=== PATIENT | female | born 1990 | race American Indian/Alaskan Native ===

== ENCOUNTER 2017-09-13 16:39 | Emergency (ER) | payer MEDICAID ==
[2017-09-13 16:44] VITALS: BP 134/57
== END 2017-09-13 22:07 | disposition left against medical advice (07) ==
LOC: ED 16:39
DX: M79.671 Pain in right foot (principal); J45.909 Unspecified asthma, uncomplicated; Y92.89 Other specified places as the place of occurrence of the external cause; Z90.89 Acquired absence of other organs; W10.9XXA Fall (on) (from) unspecified stairs and steps, initial encounter; Y93.89 Activity, other specified; Y99.8 Other external cause status; Z53.21 Procedure and treatment not carried out due to patient leaving prior to being seen by health care provider

== ENCOUNTER 2017-10-07 17:29 | Emergency (ER) | payer MEDICAID ==
[2017-10-07 18:25] VITALS: BP 126/69
[2017-10-07 18:49] LABS: Basophils # (Auto) 0.1 K/mm3 (0.0-0.1); Basophils % (Auto) 0.6 % (0.0-1.8); Eosinophils # (Auto) 0.1 K/mm3 (0.0-0.4); Eosinophils % (Auto) 1.2 % (0.0-4.3); Hematocrit 35.4 % (30.3-42.9); Hemoglobin 11.5 gm/dl (10.1-14.3); Lymphocytes # (Auto) 3.1 K/mm3 (1.2-5.4); Mean Corpuscular HGB Conc 32 % (30-34); Mean Corpuscular Hemoglobin 27 pg (28-32); Mean Corpuscular Volume 82 fl (79-97); Monocytes # (Auto) 0.4 K/mm3 (0.0-0.8); Monocytes % (Auto) 4.7 % (0.0-7.3); Platelet Count 327 K/mm3 (140-440); Red Blood Count 4.32 M/mm3 (3.65-5.03); Red Cell Distribution Width 15.8 % (13.2-15.2)
[2017-10-07 19:00] LABS: BUN/Creatinine Ratio 14; Blood Urea Nitrogen 7 mg/dL (7-17); Hemolysis Index 42
== END 2017-10-07 18:25 | disposition left against medical advice (07) ==
LOC: ED 17:29
DX: H60.399 Other infective otitis externa, unspecified ear (principal); Z53.21 Procedure and treatment not carried out due to patient leaving prior to being seen by health care provider
CPT/HCPCS: 36415; 80048; 85025

== ENCOUNTER 2019-06-21 23:55 | Emergency (ER) | payer MEDICAID ==
[2019-06-22 00:05] VITALS: BP 133/60
[2019-06-22] MEDS ORDERED: predniSONE 20 MG TAB PO ONE (01:04)
[2019-06-22] MEDS ORDERED: CETIRIZINE 10 MG TAB PO ONE (01:04)
--- NOTE | 2019-06-22 01:27 | Emergency Department Report ---
Minor Respiratory - HPI Chief Complaint: Adult Asthma Stated Complaint: SOB, ASTHMA Time Seen by Provider: 06/22/19 00:51 Pain Location: Throat Severity: mild Minor Respiratory: Yes Able to Tolerate Fluids, No Rhinorrhea, No Sore Throat, No Ear Pain, No Cough, No Sick Contacts, No Hemoptysis, No Chest Pain, No Shortness of Breath, No Fever Other History: This is a 28-year-old female with a history of asthma who states she has not been on her medication due to change of insurance presents the ED complaining of throat discomfort and feeling a little short of breath for the past 1 week. Patient states that feelings of throat discomfort for the past week.. Patient denies fever/chills/coughing/nausea vomiting abdominal pain or diarrhea or chest pain. Patient states states that she does feel little short of breath when she takes a deep breath in. Patient states she used to use albuterol inhaler but not anymore. Patient states that she does have seasonal allergies which may be flaring up her asthma. Patient denies any sick contacts. ED Review of Systems ROS: Stated complaint: SOB, ASTHMA Other details as noted in HPI Comment: All other systems reviewed and negative ED Past Medical Hx - Past Medical History Previous Medical History?: Yes Hx Asthma: Yes - Surgical History Past Surgical History?: Yes Additional Surgical History: tonsillectomy 1996 - Social History Smoking Status: Former Smoker Substance Use Type: None - Medications Home Medications: Home Medications Medication Instructions Recorded Confirmed Last Taken Type Acyclovir [Zovirax Cap] 200 mg PO 5XD 10 Days cap 12/23/14 Unknown Rx Fluconazole [Diflucan TAB] 150 mg PO ONCE #1 tablet 12/23/14 Unknown Rx Nitrofurantoin Hunt/M-Cryst 100 mg PO Q12HR #14 capsule 12/23/14 Unknown Rx [Macrobid CAP] Albuterol INH(or & Nicu Only) 2 puff IH QID PRN #8.5 gram 06/22/19 Unknown Rx [ProAir HFA Inhaler] Loratadine [Claritin] 10 mg PO DAILY #30 tablet 06/22/19 Unknown Rx Minor Respiratory Exam - Exam General: Vital signs noted. No distress. Alert and acting appropriately. HEENT: Yes Moist Mucous Membranes, No Pharyngeal Erythema, No Pharyngeal Exudates, No Rhinorrhea, No Conjuctival Injection, No Frontal Tenderness, No Maxillary Tenderness Ear: Neither TM Bulge, Neither TM Erythema, Neither EAC Pain, Neither EAC Discharge Neck: Yes Supple, No Adenopathy Lungs: Yes Good Air Exchange, No Wheezes, No Ronchi, No Stridor, No Cough, No Labored Respirations, No Retractions, No Use of Accessory Muscles, No Other Abnormal Lung Sounds Heart: Yes Regular, No Murmur Abdomen: Yes Normal Bowel Sounds, No Tenderness, No Peritoneal Signs Skin: No Rash, No Edema Neurologic: Alert and oriented, no deficits. Musculoskeletal: Unremarkable. ED Course Vital Signs 06/22/19 00:01 Temperature 98.4 F Pulse Rate 105 H Respiratory 18 Rate Blood Pressure 133/60 O2 Sat by Pulse 97 Oximetry ED Medical Decision Making - Medical Decision Making 28-year-old female who presents with complaints of throat itching and mild shortness of breath. Patient did note that she is not currently on her albuterol inhaler and is out. Patient does note that the symptoms have been going on for about a week. She notes that she has had no respiratory distress or any difficulty breathing. I discussed with patient around this season she needs to start taking Singulair Singulair or Claritin daily to avoid asthmatic exacerbation. Discussed with patient we will refill her albuterol and to take Claritin or Singulair daily. Discussed follow-up with primary care physician. Patient was in no respiratory distress or vital signs are normal. Discussed with patient if she starts to experience any worsening symptoms to return to ED immediately Critical care attestation.: If time is entered above; I have spent that time in minutes in the direct care of this critically ill patient, excluding procedure time. ED Disposition Clinical Impression: Asthma, Seasonal allergic rhinitis Disposition: TO HOME OR SELFCARE Is pt being admited?: No Does the pt Need Aspirin: No Condition: Stable Instructions: Asthma (ED), Dyspnea (ED) Additional Instructions: Make sure to follow up with the primary care physician as discussed. Take all your medications as you've been prescribed. If you have any worsening symptoms or develop new symptoms please return to ED immediately. Prescriptions: Loratadine [Claritin] 10 mg PO DAILY #30 tablet Albuterol INH(or & Nicu Only) [ProAir HFA Inhaler] 2 puff IH QID PRN #8.5 gram PRN Reason: Shortness Of Breath Referrals: PRIMARY CARE, [Primary Care Provider] - 3-[address] [facility] [Outside] - 3-5 Days [facility] [Outside] - 3-5 Days Forms: Accompanied Note, Work/School Release Form(ED) Time of Disposition: 01:30
== END 2019-06-22 01:35 | disposition home or self-care (01) ==
LOC: ED 23:55
DX: J45.909 Unspecified asthma, uncomplicated (principal); Z90.89 Acquired absence of other organs
CPT/HCPCS: 99282; J7512

== ENCOUNTER 2020-03-09 12:10 | Emergency (ER) | payer MEDICAID ==
[2020-03-09 12:56] VITALS: BP 137/77
--- NOTE | 2020-03-09 13:46 | Emergency Department Report ---
Chief Complaint: Urogenital-Female Stated Complaint: YEAST INFECTION - HPI History of Present Illness: 29-year-old -[place] female presents to the emergency room stating she having some itchiness in her vaginal area since Tuesday after she finished her menstrual cycle. Patient states that she is used Monistat but does not know if it is working. Patient does have a primary care provider. Patient denies any dysuria denies any abdominal pain no fever no chills no nausea no vomiting. - Exam Vital Signs: Vital Signs 03/09/20 12:55 Temperature 98.1 F Pulse Rate 95 H Respiratory 14 Rate Blood Pressure 137/77 O2 Sat by Pulse 97 Oximetry Physical Exam: Alert and oriented x3 no acute distress nontoxic in appearance Nonlabored breathing Ambulatory without difficulties. MSE screening note: Focused history and physical exam performed. Due to findings the following was ordered: 29-year-old -[place] female presents to the emergency room stating she having some itchiness in her vaginal area since Tuesday after she finished her menstrual cycle. Patient states that she is used Monistat but does not know if it is working. Patient does have a primary care provider. Patient denies any dysuria denies any abdominal pain no fever no chills no nausea no vomiting. Discussed with patient she can follow-up with her primary care provider or [employer] provider. ED Disposition for MSE Disposition: MED SCREENING EXAM-LEFT Is pt being admited?: No Does the pt Need Aspirin: No Condition: Stable Additional Instructions: Recommend to follow-up with your primary care provider or urgent care. Referrals: Your, primary care provider [Other] - 3-5 Days
== END 2020-03-09 15:05 | disposition left against medical advice (07) ==
LOC: ED 12:10
DX: L29.9 Pruritus, unspecified (principal); Z53.21 Procedure and treatment not carried out due to patient leaving prior to being seen by health care provider